=== PATIENT | male | born 1935 | race Caucasian/White ===

== ENCOUNTER 2017-07-29 12:57 | Outpatient (CLI) | payer MEDICARE ==
--- NOTE | 2017-07-29 15:14 | Diagnostic Imaging Report ---
AILYN OCAMPO (DANIELE) - OP [facility] [address] [facility].[address] [address] Report Submission Date: Jul 29, 2017 1:27:58 PM CDT Patient Study Name: NOELLE LOPEZ Date: Jul 29, 2017 1:05:26 PM CDT Modality Type: DX Gender: M Description: CHEST : 37 Institution: [facility] Physician: AILYN OCAMPO (DANIELE) - OP Examination: PA and lateral chest. History: Evaluate lung martin. PT C/O COUGH X 3 MONTHS AND HAS TAKEN ANTIBIOTICS AND STERIODS, BUT THEY HAVE NOT HELPED. (Hx) Comparison exam: None provided. Findings: PA lateral chest demonstrate a prominent cardiac and mediastinal silhouette. Sternotomy wires. Vascular calcifications involving the aortic arch. Chronic appearing interstitial changes. No focal infiltrate. No blunting of the costophrenic margins. Lateral pleural thickening. Hiatal hernia. Articular degenerative changes. Impression: Chronic interstitial changes. No acute appearing pulmonary process. Electronically signed on Jul 29, 2017 1:27:58 PM CDT by: Ej SALCEDO
== END 2017-07-29 13:00 ==
LOC: RAD 12:57
PROVIDERS: ATTEND Nurse Practitioner Family
DX: R05 Cough (principal)
CPT/HCPCS: 71046

== ENCOUNTER 2018-07-02 09:17 | Outpatient (CLI) | payer MEDICARE ==
[2018-07-02 09:57] LABS: BASOPHILS % 3.8 (0.0-1.5); EOSINOPHILS % 2.7 % (0.0-6.8); MEAN CORPUSCULAR HEMOGLOBIN 31.7 pg (28.0-34.0); MONOCYTES % 7.4 % (0.0-11.0); NEUTROPHILS # 6.7 # k/uL (1.4-7.7)
[2018-07-02 10:25] LABS: eGFR (Non-African) > 60
[2018-07-02 14:08] LABS: APPEARANCE,URINE CLEAR (CLEAR); COLOR,URINE YELLOW (YELLOW); OCCULT BLOOD,URINE NEGATIVE (NEGATIVE)
[2018-07-02 14:09] LABS: UROBILINOGEN URINE 0.2 Eu (0.2-1.0)
== END 2018-07-02 09:19 ==
LOC: LAB 09:17
PROVIDERS: ATTEND Internal Medicine
DX: Z00.00 Encounter for general adult medical examination without abnormal findings (principal); Z12.5 Encounter for screening for malignant neoplasm of prostate; I10 Essential (primary) hypertension; E78.2 Mixed hyperlipidemia; E11.9 Type 2 diabetes mellitus without complications; I35.0 Nonrheumatic aortic (valve) stenosis
CPT/HCPCS: 36415; 80053; 80061; 81002; 82043; 82570; 83036; 84153; 84439; 84443; 85025